=== PATIENT | female | born 1980 | race Caucasian/White ===

== ENCOUNTER 2018-08-24 16:34 | Emergency (ER) | payer SELFPAY ==
[~2018-08-24] VITALS: Ht 167.6 cm; Wt 56.8 kg
[2018-08-24 16:40] VITALS: Ht 167.6 cm; Wt 56.8 kg
[2018-08-24 18:05] LABS: APPEARANCE HAZY (CLEAR); BACTERIA MANY /hpf (NONE SEEN); BILIRUBIN NEGATIVE (NEGATIVE); COLOR YELLOW (YELLOW); EPITHELIAL CELLS 0-5 /hpf (0-5); GLUCOSE NEGATIVE (NEGATIVE); KETONE NEGATIVE (NEGATIVE); MUCUS <1+ /lpf (NONE SEEN); NITRITE POSITIVE (NEGATIVE); PROTEIN 1+ mg/dL (NEGATIVE); RED CELLS - URINE 0-5 /hpf (0-5); UROBILINOGEN NORMAL (NORMAL); WHITE CELLS - URINE >50 /hpf (0-5)
[2018-08-24] MEDS ORDERED: ULTRAM50 MG PO (18:46)
[2018-08-24 19:50] VITALS: BP 122/71
== END 2018-08-24 19:50 | disposition home or self-care (01) ==
LOC: D.ER 16:34
PROVIDERS: Emergency Medicine
DX: R51 Headache (principal); F17.200 Nicotine dependence, unspecified, uncomplicated